=== PATIENT | female | born 1965 | race Caucasian/White ===

== ENCOUNTER 2019-07-08 00:19 | Emergency (ER) | payer MEDICAID ==
[~2019-07-08] VITALS: Ht 165.1 cm; Wt 60.0 kg
[2019-07-08] MEDS ORDERED: HYDROCODONE/ACETAMINOPHEN 5/325MG TABLET PO ONE (01:15)
[2019-07-08] MEDS ORDERED: METHYLPREDNISOLONE SOD SUCC 125 MG/2 ML VIAL IM ONE (03:45)
[2019-07-08] MEDS ORDERED: MORPHINE SULFATE 10 MG/ML CPJ IM ONE (04:00)
[2019-07-08 05:03] VITALS: BP 124/72
== END 2019-07-08 05:16 | disposition home or self-care (01) ==
LOC: ER 00:19
DX: M54.2 Cervicalgia (principal)
CPT/HCPCS: 72125; 96372; 99284; J2270; J2930